=== PATIENT | male | born 2000 | race Two or more races ===

== ENCOUNTER 2021-03-19 20:50 | Emergency (ER) | payer OTHER ==
[~2021-03-19] VITALS: Ht 175.3 cm; Wt 63.5 kg
[~2021-03-19 20:50] MED LIST: FOCALIN XR20 MG
== END 2021-03-20 03:51 ==
LOC: EMR PED 20:50 → ER 20:50 → EMR PED 22:19
DX: E80.7 Disorder of bilirubin metabolism, unspecified (principal); E80.4 Gilbert syndrome

== ENCOUNTER 2022-01-05 15:05 | Emergency (ER) | payer OTHER ==
[~2022-01-05] VITALS: Ht 175.3 cm; Wt 59.9 kg
== END 2022-01-05 18:06 | disposition home or self-care (01) ==
LOC: ER 15:05
DX: J10.1 Influenza due to other identified influenza virus with other respiratory manifestations (principal); Z88.0 Allergy status to penicillin; Z91.013 Allergy to seafood; Z20.822 Contact with and (suspected) exposure to COVID-19